=== PATIENT | female | born 1995 | race Caucasian/White ===

== ENCOUNTER 2021-07-20 05:48 | Inpatient (IN) | payer BC ==
[2021-07-20 06:29] LABS: Fetal Membranes Rupture RUPTURE DETECTED (No Rupture)
[2021-07-20] MEDS ORDERED: hydrALAZINE 20 MG/ML VIAL SLOW IVP PRN ×3 (06:29→08:17)
[2021-07-20] MEDS ORDERED: Lidocaine 1% (PF) 30 ML VIAL SC PRN (06:49)
[2021-07-20] MEDS ORDERED: Ondansetron PF 4 MG/2 ML Vial IVP PRN ×2 (06:49→09:19)
[2021-07-20] MEDS ORDERED: Butorphanol Tartrate 1 MG/ML VIAL SLOW IVP PRN ×2 (06:49→23:30)
[2021-07-20] MEDS ORDERED: Acetaminophen 500 MG TAB PO PRN (06:49)
[2021-07-20] MEDS ORDERED: Promethazine HCl 25 MG/ML VIAL IM PRN ×2 (06:49→09:19)
[2021-07-20] MEDS ORDERED: Calcium Gluc 4.6 MEQ/10 ML (100 MG/ML) SLOW IVP PRN (06:49)
[2021-07-20] MEDS ORDERED: Betamet Acet/Betamet Na Ph 30 MG/5 ML VIAL ONE (06:53)
[2021-07-20] MEDS ORDERED: Ampicillin 2 GM VIAL ONE (06:53)
[2021-07-20] MEDS ORDERED: Magnesium Sulfate 20 gm/500 ml 20 GM/500 ML BAG ONE (06:53)
[2021-07-20] MEDS ORDERED: NS w/ Oxytocin 30 units 500 ML IV SCH (07:00)
[2021-07-20] MEDS ORDERED: Magnesium Sulfate 20 gm/500 ml 20 GM/500 ML BAG IVPB SCH (07:00)
[2021-07-20] MEDS ORDERED: Betamet Acet/Betamet Na Ph 30 MG/5 ML VIAL IM SCH (07:00)
[2021-07-20] MEDS ORDERED: Magnesium Sulfate 20 GM/WATER 500 ML BAG IVPB SCH (07:00)
[2021-07-20] MEDS: Lactated Ringer's 1,000 ML IV SCH ×2 (07:05→17:16)
[2021-07-20 07:41] LABS: Hemoglobin 11.1 g/dL (12.0-15.5); Mean Corpuscular HGB CONC 33.2 g/dL (32.0-36.0); Mean Corpuscular Hemoglobin 30.3 pg (27.0-33.0); Mean Corpuscular Volume 91.3 fl (81.6-98.3); Mean Platelet Volume 9.4 fl (7.4-10.4); Platelet Count 257 10x3/uL (150-450); Red Blood Cell (RBC) Count 3.66 10x6/uL (3.90-5.03); White Blood Cell (WBC) Count 9.6 10x3/uL (3.5-10.5)
[2021-07-20] MEDS ORDERED: Morphine PF 10 MG/10 ML VIAL ONE (07:50)
[2021-07-20] MEDS ORDERED: ceFAZolin 2 GM/Dextrose 50 ML IVPB ONE (07:52)
[2021-07-20] MEDS ORDERED: Phenylephrine 40 MG/NS 250 ML 250 ML ONE (07:56)
[2021-07-20] MEDS ORDERED: Boostrix 0.5 ML (Tdap) VIAL IM ONE (08:17)
[2021-07-20] MEDS ORDERED: HYDROcodone/Acetaminophen 5/325 mg Tablet PO PRN ×2 (08:17)
[2021-07-20] MEDS ORDERED: Zolpidem Tartrate 5 MG TAB PO PRN (08:17)
[2021-07-20] MEDS ORDERED: Simethicone Chewable 80 MG TAB PO PRN (08:17)
[2021-07-20] MEDS ORDERED: Bisacodyl 10 MG SUPP PR PRN (08:17)
[2021-07-20] MEDS ORDERED: diphenhydrAMINE 25 MG CAP PO PRN (08:17)
[2021-07-20] MEDS ORDERED: Lanolin Ointment 7 GM TUBE TOP PRN (08:17)
[2021-07-20] MEDS ORDERED: Acetaminophen 325 MG TAB PO PRN (08:17)
[2021-07-20] MEDS ORDERED: PHENYLEPHRINE-NS 100 MCG/ML 10 ML SYRINGE ONE (08:19)
[2021-07-20 08:21] LABS: Hep B Surf Ag Non-Reactive S/CO (NonReactive)
[2021-07-20 08:22] LABS: Syphilis Antibody Nonreactive (Nonreactive); Syphilis Antibody Index 0.02 S/CO (<1.00 Non-Reactive)
[2021-07-20 08:41] VITALS: BMI 25.8
[2021-07-20] MEDS ORDERED: Promethazine HCl 25 MG SUPP PR PRN (09:19)
[2021-07-20] MEDS ORDERED: Ondansetron HCl/PF 4 MG/2 ML Vial IVP PRN (09:19)
[2021-07-20] MEDS ORDERED: L&D-Morphine 4 MG/ML VIAL SLOW IVP PRN (09:19)
[2021-07-20] MEDS ORDERED: diphenhydrAMINE 50 MG/ML VIAL IVP PRN (09:19)
[2021-07-20] MEDS ORDERED: Hydrocerin (Eucerin) Cream 120 gm Jar TOP PRN (09:19)
[2021-07-20] MEDS ORDERED: HYDROmorphone 2 MG/ML VIAL SLOW IVP PRN (09:19)
[2021-07-20] MEDS ORDERED: Naloxone HCl 0.4 mg/ml Vial IV PRN (09:19)
[2021-07-20] MEDS ORDERED: Naloxone HCl 0.4 mg/ml Vial IVP PRN ×2 (09:19)
[2021-07-20] MEDS ORDERED: Meperidine HCl/PF 25 MG/ML VIAL SLOW IVP PRN (09:19)
[2021-07-20 09:21] LABS: SARS-CoV-2 NAA Rapid Test Not Detected (NotDetected)
[2021-07-20] MEDS ORDERED: Communication Order-Pharmacy FS SCH (09:30)
[2021-07-20] MEDS ORDERED: Ketorolac Tromethamine 30 MG/ML VIAL IVP SCH (09:30)
[2021-07-20] MEDS ORDERED: Fentanyl 100 MCG/2 ML VIAL ONE (09:35)
[2021-07-20] MEDS ORDERED: Midazolam HCl 2 mg/2 ml Vial ONE (09:35)
[2021-07-20] MEDS ORDERED: Poractant Alfa 240 MG/3 ML FS SCH (09:50)
[2021-07-20] MEDS ORDERED: Ketorolac Tromethamine 30 MG/ML VIAL ONE (10:14)
[2021-07-20] MEDS: Ketorolac Tromethamine 30 MG/ML VIAL IVP PRN ×2 (10:28→19:53)
[2021-07-20] MEDS ORDERED: Ampicillin 2 GM in Sodium Chloride 0.9% 100 ML IVPB SCH (12:00)
[2021-07-20] MEDS ORDERED: Ibuprofen 800 MG TAB PO SCH (14:00)
[2021-07-20 14:26] LABS: HBSAg Index 0.19 S/CO (0-0.99)
[2021-07-20] MEDS: Prenatal Vitamin 1 TAB PO SCH (14:27)
[2021-07-20] MEDS ORDERED: Morphine 2 MG/ML VIAL SLOW IVP PRN (15:37)
[2021-07-20] MEDS: Ampicillin 2 GM in Sodium Chloride 0.9% 100 ML IVPB SCH (15:51)
[2021-07-21] MEDS: Ketorolac Tromethamine 30 MG/ML VIAL IVP PRN ×2 (00:40→06:41)
[2021-07-21] MEDS: Ampicillin 2 GM in Sodium Chloride 0.9% 100 ML IVPB SCH ×5 (00:41→15:02)
[2021-07-21] MEDS: Lactated Ringer's 1,000 ML IV SCH ×2 (00:42→08:27)
[2021-07-21 04:39] LABS: Hemoglobin 9.1 g/dL (12.0-15.5); Mean Corpuscular HGB CONC 33.2 g/dL (32.0-36.0); Mean Corpuscular Hemoglobin 30.6 pg (27.0-33.0); Mean Corpuscular Volume 92.3 fl (81.6-98.3); Mean Platelet Volume 9.1 fl (7.4-10.4); Platelet Count 205 10x3/uL (150-450); RBC Distribution Width 13.1 % (11.5-14.5); Red Blood Cell (RBC) Count 2.97 10x6/uL (3.90-5.03); White Blood Cell (WBC) Count 12.3 10x3/uL (3.5-10.5)
[2021-07-21] MEDS: Prenatal Vitamin 1 TAB PO SCH (08:43)
[2021-07-21] MEDS: HYDROcodone/Acetaminophen 5/325 mg Tablet PO PRN ×4 (09:53→23:45)
[2021-07-21] MEDS ORDERED: Ampicillin 2 GM in Sodium Chloride 0.9% 100 ML IVPB SCH (12:00)
[2021-07-21] MEDS: Ibuprofen 800 MG TAB PO SCH (22:39)
[2021-07-22] MEDS: Lactated Ringer's 1,000 ML IV SCH ×3 (00:07→15:20)
[2021-07-22] MEDS: Ibuprofen 800 MG TAB PO SCH ×3 (05:02→22:06)
[2021-07-22] MEDS ORDERED: Milk Of Magnesia 30 ML UDCUP PO PRN (07:37)
[2021-07-22] MEDS: Docusate Calcium (SURFAK) 240 MG CAP PO SCH ×2 (08:30→22:06)
[2021-07-22] MEDS: HYDROcodone/Acetaminophen 5/325 mg Tablet PO PRN ×2 (08:31→22:27)
[2021-07-22] MEDS: Prenatal Vitamin 1 TAB PO SCH ×2 (08:32→08:34)
[2021-07-23] MEDS: Lactated Ringer's 1,000 ML IV SCH ×3 (04:40→15:50)
[2021-07-23] MEDS: Ibuprofen 800 MG TAB PO SCH ×3 (05:32→23:03)
[2021-07-23] MEDS: Docusate Calcium (SURFAK) 240 MG CAP PO SCH ×2 (08:21→23:04)
[2021-07-23] MEDS: Prenatal Vitamin 1 TAB PO SCH (08:23)
[2021-07-23] MEDS: HYDROcodone/Acetaminophen 5/325 mg Tablet PO PRN (18:50)
[2021-07-24] MEDS: Lactated Ringer's 1,000 ML IV SCH ×2 (00:46→07:32)
[2021-07-24] MEDS: HYDROcodone/Acetaminophen 5/325 mg Tablet PO PRN ×2 (03:05→10:53)
[2021-07-24 07:54] VITALS: BP 95/53; TEMP 98.5
[2021-07-24] MEDS: Docusate Calcium (SURFAK) 240 MG CAP PO SCH (07:57)
[2021-07-24] MEDS: Ibuprofen 800 MG TAB PO SCH (07:58)
[2021-07-24] MEDS: Prenatal Vitamin 1 TAB PO SCH (08:04)
== END 2021-07-24 11:00 | disposition home or self-care (01) | DRG 787 ==
LOC: CSHLD/OP 05:48 → CSHLD 06:51 → CSHPP 13:50
PROVIDERS: ADMIT Obstetrics & Gynecology; ATTEND Obstetrics & Gynecology
PROC: 10D00Z1 Extraction of Products of Conception, Low, Open Approach (ICD-10-PCS; principal; 2021-07-20)
DX: O42.913 Preterm premature rupture of membranes, unspecified as to length of time between rupture and onset of labor, third trimester (principal); O26.873 Cervical shortening, third trimester; O43.123 Velamentous insertion of umbilical cord, third trimester; O69.0XX0 Labor and delivery complicated by prolapse of cord, not applicable or unspecified; D64.9 Anemia, unspecified; O90.81 Anemia of the puerperium; Z3A.29 29 weeks gestation of pregnancy; Z37.0 Single live birth; Z20.822 Contact with and (suspected) exposure to COVID-19
CPT/HCPCS: 36415; 36416; 76815; 81003; 84112; 85027; 86780; 86850; 86900; 86901; 87340; 88307; J0290; J0702; J1885; J2250; J2270; J2274; J3010; J3475; J3490; J7120; U0002

== ENCOUNTER 2023-11-30 23:20 | Day surgery (SDC) | payer BC ==
[2023-11-30 23:46] VITALS: BMI 26.6
[2023-12-01] MEDS ORDERED: hydrALAZINE 20 MG/ML VIAL SLOW IVP PRN (01:15)
[2023-12-01 03:14] LABS: Bilirubin Neg (Negative); Blood, Urine 10 (Negative); Glucose, Urine (Dipstick) Normal (Negative); Ketone, Urine Negative (Negative); Leukocyte Negative (Negative); Nitrite Negative (Negative); Protein, Urine (Dipstick) 15 mg/dl (Neg-Trace); Urobilinogen Normal mg/dL (Less than 2)
[2023-12-01 03:28] LABS: Clarity Clear (Clear)
[2023-12-01 04:15] LABS: Bacteria/HPF None Seen HPF (None Seen); CAUTI Indications for Culture Dysuria,urgency,freq; RBC/HPF None Seen HPF (0-3); Squamous Epithelial 0-3 HPF (0-3); WBC/HPF 0-3 HPF (0-3)
[2023-12-01 04:16] LABS: Urine Culture Reflex No No
== END 2023-12-01 09:50 | disposition home or self-care (01) ==
LOC: CSHLD/OP 23:20
PROVIDERS: ATTEND Student in an Organized Health Care Education/Training Program
DX: O47.1 False labor at or after 37 completed weeks of gestation (principal); O34.211 Maternal care for low transverse scar from previous cesarean delivery; O23.43 Unspecified infection of urinary tract in pregnancy, third trimester; R30.0 Dysuria; Z79.899 Other long term (current) drug therapy; Z3A.40 40 weeks gestation of pregnancy
CPT/HCPCS: 76819; 81001; 99285